=== PATIENT | male | born 1945 | race Caucasian/White ===

== ENCOUNTER 2020-03-24 12:46 | Observation (INO) | payer MEDICARE, BC ==
[2020-03-24] MEDS ORDERED: Boostrix 0.5 ML VIAL ONE (13:24)
[2020-03-24 13:33] LABS: #Basophils 0.1 thou/uL (0.0-0.2); #Eosinphils 0.1 thou/uL (0.0-0.7); #Lymphocytes 1.6 thou/uL (1.20-3.40); #Monocytes 0.6 thou/uL (0.11-0.59); %Basophils 1.1 % (0.0-1.0); %Eosinophils 1.6 % (0.0-10.0); %Lymphocytes 30.2 % (21.0-51.0); %Monocytes 11.1 % (0.0-10.0); Hemoglobin 13.2 g/dL (14.0-18.0); Mean Corpuscular HGB CONC 33.4 g/dL (32.0-36.0); Mean Corpuscular Hemoglobin 31.3 pg (27.0-31.0); Mean Corpuscular Volume 93.6 fL (78.0-98.0); Mean Platelet Volume 8.2 fL (7.4-10.4); Platelet Count 194 thou/uL (130-400); RBC Distribution Width 12.2 % (11.5-14.5); Red Blood Cell (RBC) Count 4.23 mill/uL (4.70-6.10); White Blood Cell (WBC) Count 5.3 thou/uL (4.8-10.8)
[2020-03-24 13:39] LABS: PTT 29.4 sec (22.9-36.1); Prothrombin Time 13.3 sec (12.0-14.7)
[2020-03-24 13:50] LABS: ALT (SGPT) 21 U/L (8-55); AST (SGOT) 28 U/L (5-34); Albumin 4.5 g/dL (3.4-4.8); Alkaline Phosphatase 60 U/L (40-110); Anion Gap 14 mmol/L (10-20); BUN (Urea Nitrogen) 22 mg/dL (8.4-25.7); Bilirubin, Total 0.9 mg/dL (0.2-1.2); CK (CPK) 246 U/L (30-200); Calc. Creatinine Clearance 0 mL/min (70-130); Calcium 9.3 mg/dL (7.8-10.44); Carbon Dioxide 25 mmol/L (23-31); Chloride 104 mmol/L (98-107); Estimated GFR-MDRD 53; Globulin 3.1 g/dL (2.4-3.5); Glucose 88 mg/dL (83-110); Protein, Total 7.6 g/dL (5.8-8.1); Sodium 139 mmol/L (136-145)
[2020-03-24 14:23] LABS: Bilirubin Negative (Negative); Blood, Urine Negative (Negative); Clarity Clear (Clear); Glucose, Urine (Dipstick) Normal (Negative); Ketone, Urine Negative (Negative); Leukocyte Negative Leu/uL (Negative); Nitrite Negative (Negative); Protein, Urine (Dipstick) Negative (Neg-Trace); Specific Gravity, Urine 1.019 (1.002-1.036); Urobilinogen Normal mg/dL (Less than 2); pH, Urine 5.5 (5.0-9.0)
[2020-03-24] MEDS ORDERED: Ondansetron PF 4 MG/2 ML Vial IVP PRN (15:14)
[2020-03-24] MEDS ORDERED: Bisacodyl 5 MG TAB PO PRN (15:14)
[2020-03-24] MEDS ORDERED: Acetaminophen 325 MG TAB PO PRN (15:14)
--- NOTE | 2020-03-24 16:01 | PDOC.HHP ---
Hospitalist HPI - History of Present Illness Snake bite History of Present Illness: Patient is a pleasant 74-year-old gentleman who was seen in the emergency room on March 24, 2020. Earlier today, she was helping move furniture and in old abandoned house. 1 of the people he was working with gave him a chair that had a snake on it. Snake bit him on the dorsum of his right hand 4 times. He is unsure whether it was a copperhead snake. He denies any chest pain, shortness of breath, fevers or chills. He reports minimal pain at the site of the snakebite. He has no other complaints. In the emergency room, he received tetanus toxoid. Poison control was contacted by emergency room physician. It was recommended that patient be admitted for rechecking his labs. Hospitalist service was contacted for the same. ED Course: BP: 159/74, Pulse: 65, Resp: 20, Temp: 98.7 (Oral), Pain: 0, O2 sat: 98 on (Room Air), Time: 03/24/2020 14:24. Hospitalist ROS - Review of Systems Constitutional: denies: fever, chills, sweats, weakness, malaise Respiratory: denies: cough, dry, shortness of breath, hemoptysis, SOB with excertion, pleuritic pain, sputum, wheezing Cardiovascular: denies: chest pain, palpitations, orthopnea, paroxysmal noc. dyspnea, edema, light headedness Gastrointestinal: denies: nausea, vomiting, abdominal pain, diarrhea, constipation, melena, hematochezia Neurological: denies: weakness, numbness, incoordination, change in speech, confusion, seizures All other systems reviewed; all pertinent +/- noted in HPI/Subj - Medication Medications: Allergies: No known drug allergies. Current medications: amLODIPine Sat Mar 24, 2020 13:06 Rios RN, Daniel tablet : Strength - 5 mg : ORAL Patient Dose: Unknown. lisinopril Sat Mar 24, 2020 13:06 Rios RN, Daniel tablet : Strength - 40 mg : ORAL Patient Dose: Unknown. minoxidil oral Sat Mar 24, 2020 13:07 Rios RN, Daniel tablet : Strength - 10 mg : ORAL Patient Dose: Unknown. simvastatin Sat Mar 24, 2020 13:07 Rios RN, Daniel tablet : Strength - 20 mg : ORAL Patient Dose: Unknown. bisoprolol-hydrochlorothiazide Sat Mar 24, 2020 13:08 Rios RN, Daniel tablet : Strength - 10 mg-6.25 mg : ORAL Patient Dose: Unknown. clopidogrel Sat Mar 24, 2020 13:08 Rios RN, Daniel tablet : Strength - 75 mg : ORAL Patient Dose: Unknown. aspirin oral Sat Mar 24, 2020 13:09 Rios RN, Daniel tablet : Strength - 81 mg : ORAL Patient Dose: Unknown. Hospitalist History - Past Medical History Cardiac: reports: CAD, HTN, Other (Carotid stenosis) - Past Surgical History Past Surgical History: reports: Other (Carotid surgery, PCI with coronary stents x2) - Family History Family History: reports: hypertension - Social History Smoking Status: Never smoker Alcohol: reports: None Drugs: reports: none - Exam General Appearance: awake alert Eye: anicteric sclera ENT: moist mucosa Neck: supple, symmetric, no lymphadenopathy Heart: RRR, no rubs Heart - other findings: No vascular deficits in the right upper extremity Respiratory: CTAB, no rales, no ronchi, normal chest expansion Gastrointestinal: soft, non-tender Extremities: no cyanosis Skin: no rashes Skin - other findings: double puncture marksx2 over the dorsum of his right hand, mild erythema Neurological - other findings: No neurologic deficits in the right upper ext remity Psychiatric: normal affect, normal behavior, A&O x 3 Hospitalist Results - Labs Result Diagrams: 03/24/20 13:18 03/24/20 13:18 Lab results: WBC 5.3 thou/uL (4.8-10.8) 03/24/20 13:18 Hgb 13.2 g/dL (14.0-18.0) L 03/24/20 13:18 Hct 39.6 % (42.0-52.0) L 03/24/20 13:18 MCV 93.6 fL (78.0-98.0) 03/24/20 13:18 Plt Count 194 thou/uL (130-400) 03/24/20 13:18 Neutrophils % 56.0 % (42.0-75.0) 03/24/20 13:18 Sodium 139 mmol/L (136-145) 03/24/20 13:18 Potassium 4.0 mmol/L (3.5-5.1) 03/24/20 13:18 Chloride 104 mmol/L (98-107) 03/24/20 13:18 Carbon Dioxide 25 mmol/L (23-31) 03/24/20 13:18 BUN 22 mg/dL (8.4-25.7) 03/24/20 13:18 Creatinine 1.33 mg/dL (0.7-1.3) H 03/24/20 13:18 Glucose 88 mg/dL (83-110) 03/24/20 13:18 Calcium 9.3 mg/dL (7.8-10.44) 03/24/20 13:18 Total Bilirubin 0.9 mg/dL (0.2-1.2) 03/24/20 13:18 AST 28 U/L (5-34) 03/24/20 13:18 ALT 21 U/L (8-55) 03/24/20 13:18 Alkaline Phosphatase 60 U/L (40-110) 03/24/20 13:18 Creatine Kinase 246 U/L (30-200) H 03/24/20 13:18 Serum Total Protein 7.6 g/dL (5.8-8.1) 03/24/20 13:18 Albumin 4.5 g/dL (3.4-4.8) 03/24/20 13:18 Urine Ketones Negative mg/dL (Negative) 03/24/20 14:02 Urine Blood Negative (Negative) 03/24/20 14:02 Urine Nitrite Negative (Negative) 03/24/20 14:02 Ur Leukocyte Esterase Negative Eduardo/uL (Negative) 03/24/20 14:02 - EKG Interpretation EKG: Normal sinus rhythm Hospitalist H&P A/P - Problem (1) Snake bite poisoning Code(s): T63.001A - TOXIC EFFECT OF UNSP SNAKE VENOM, ACCIDENTAL, INIT Status: Acute (2) Hypertension Code(s): I10 - ESSENTIAL (PRIMARY) HYPERTENSION Status: Chronic (3) Coronary artery disease Code(s): I25.10 - ATHSCL HEART DISEASE OF [place] CORONARY ARTERY W/O ANG PCTRS Status: Chronic (4) Dyslipidemia Code(s): E78.5 - HYPERLIPIDEMIA, UNSPECIFIED Status: Chronic - Plan Plan: Patient to be admitted to the hospital on observation status for monitoring and for rechecking labs. Continue aspirin and Plavix. Resume home antihypertensives, monitor vital signs and titrate antihypertensives as needed. Continue statin. Estimated length of stay: Less than 2 midnights. Level of risk: Moderate. Level of complexity: Moderate.
[2020-03-24 16:39] VITALS: BMI 23.3
[2020-03-24] MEDS ORDERED: Atorvastatin Calcium 10 MG TAB PO SCH (21:00)
[2020-03-24 21:13] LABS: PTT 29.7 sec (22.9-36.1); Prothrombin Time 13.6 sec (12.0-14.7)
[2020-03-25 06:34] LABS: #Eosinphils 0.1 thou/uL (0.0-0.7); #Lymphocytes 1.5 thou/uL (1.20-3.40); #Monocytes 0.6 thou/uL (0.11-0.59); #Neutrophils 3.6 thou/uL (1.40-6.50); %Basophils 0.6 % (0.0-1.0); %Eosinophils 1.6 % (0.0-10.0); %Lymphocytes 25.9 % (21.0-51.0); %Monocytes 10.2 % (0.0-10.0); %Neutrophils 61.8 % (42.0-75.0); Hemoglobin 13.6 g/dL (14.0-18.0); Mean Corpuscular HGB CONC 33.3 g/dL (32.0-36.0); Mean Corpuscular Hemoglobin 31.3 pg (27.0-31.0); Mean Corpuscular Volume 93.9 fL (78.0-98.0); Mean Platelet Volume 8.6 fL (7.4-10.4); Platelet Count 187 thou/uL (130-400); RBC Distribution Width 12.2 % (11.5-14.5); Red Blood Cell (RBC) Count 4.34 mill/uL (4.70-6.10); White Blood Cell (WBC) Count 5.9 thou/uL (4.8-10.8)
[2020-03-25 06:52] LABS: Anion Gap 12 mmol/L (10-20); BUN (Urea Nitrogen) 16 mg/dL (8.4-25.7); Calc. Creatinine Clearance 65 mL/min (70-130); Calcium 8.8 mg/dL (7.8-10.44); Carbon Dioxide 26 mmol/L (23-31); Chloride 105 mmol/L (98-107); Estimated GFR-MDRD 65; Glucose 86 mg/dL (83-110); Potassium 3.9 mmol/L (3.5-5.1); Sodium 139 mmol/L (136-145)
[2020-03-25] MEDS ORDERED: Bisoprolol Fumarate/HCTZ 10 mg/6.25 mg Tablet PO SCH (09:00)
[2020-03-25] MEDS ORDERED: Clopidogrel Bisulfate 75 MG TAB PO SCH (09:00)
[2020-03-25] MEDS ORDERED: Aspirin 81 mg Enteric Coated Tablet PO SCH (09:00)
[2020-03-25] MEDS ORDERED: Amlodipine 5 MG TAB PO SCH (09:00)
[2020-03-25 09:09] VITALS: BP 167/79; TEMP 97.8
--- NOTE | 2020-03-25 10:15 | DIS ---
DATE OF ADMISSION: 03/24/2020 DATE OF DISCHARGE: 03/25/2020 DISCHARGE DIAGNOSIS: Snake bite poisoning. CONDITION: Of the patient on the day of discharge: Stable. I assessed Mr. Richter on the day of discharge. He denies any chest pain or shortness of breath. Vital signs are stable. S1 and S2 are heard, regular. Lungs are clear to auscultation bilaterally. HOSPITAL COURSE: Mr. Richter is a pleasant 74-year-old gentleman, who was admitted to [facility] on March 24, 2020, for snake bite to the dorsum of his right hand. He had 4 bites in total. There was concern that the snake may have been copperhead. He was admitted for observation. Repeat labs were unremarkable. There was no progression of inflammation from the bite. He is being discharged home in a stable condition. There were no neurovascular sequelae to the bite. Many thanks for allowing me to participate in your patient's care. Please feel free to contact me with any questions or concerns. POST-ACUTE CARE FOLLOWUP: With primary care provider in 3 days. DIET: Heart-healthy diet. ACTIVITY: No restrictions. DISCHARGE DESTINATION: Home. Job ID: [id number]
== END 2020-03-25 10:25 | disposition home or self-care (01) ==
LOC: ERS 12:46 → ONC 15:09
PROVIDERS: ADMIT Internal Medicine; ATTEND Internal Medicine
DX: T63.001A Toxic effect of unspecified snake venom, accidental (unintentional), initial encounter (principal); I10 Essential (primary) hypertension; I25.10 Atherosclerotic heart disease of native coronary artery without angina pectoris; E78.5 Hyperlipidemia, unspecified; Z79.02 Long term (current) use of antithrombotics/antiplatelets; Z79.82 Long term (current) use of aspirin; Z79.899 Other long term (current) drug therapy; Z95.5 Presence of coronary angioplasty implant and graft
CPT/HCPCS: 36415; 80048; 80053; 81003; 82550; 85025; 85384; 85610; 85730; 86850; 86900; 86901; 90471; 90715; 93005; G0378